=== PATIENT | male | born 1990 | race Caucasian/White ===

== ENCOUNTER 2023-06-16 21:52 | Inpatient (IN) | payer BC, OTHER ==
[2023-06-16] MEDS ORDERED: ACETAMINOPHEN INJECTION 100 ML IVPB ONE (22:43)
[2023-06-16] MEDS ORDERED: FAMOTIDINE 20 MG/50 ML IVPB 20 MG/50 ML MG IVPB ONE (22:43)
[2023-06-16 22:48] LABS: BASO % 0.5 % (0-2.0); EOS % 1.3 % (0-4.5); HEMATOCRIT 39.8 % (35.4-49); HEMOGLOBIN 13.1 GM/dL (11.7-16.9); LYMPH % 16.4 % (8-40); MCH 27.4 pg (25.7-33.7); MCHC 32.9 g/dl (32.0-35.9); MEAN CELL VOLUME 83.3 fl (80-96); MEAN PLT VOLUME 8.3 fl (7.5-11.1); MONO % 8.8 % (3.8-10.2); PLATELET COUNT 275 10^3/uL (134-434); RBC 4.78 M/mm3 (4.00-5.60); RDW 13.9 % (11.9-15.9)
[2023-06-16] MEDS: ACETAMINOPHEN 1000 MG/100 ML BAG IVPB ONE (22:58)
[2023-06-16] MEDS: SODIUM CHLORIDE 1,000 ML IV STA (22:58)
[2023-06-16 22:59] LABS: PH,URINE 5.5 (5.0-8.0); URINE APPEARANCE CLEAR; URINE BILIRUBIN NEGATIVE (NEGATIVE); URINE COLOR YELLOW; URINE GLUCOSE (UA) NEGATIVE (NEGATIVE); URINE KETONE NEGATIVE (NEGATIVE); URINE LEUK ESTERASE NEGATIVE (NEGATIVE); URINE NITRITE NEGATIVE (NEGATIVE); URINE PROTEIN NEGATIVE (NEGATIVE); URINE UROBILINOGEN 0.2 mg/dL (0.2-1.0)
[2023-06-16 23:06] LABS: POTASSIUM 3.6 mmol/L (3.5-5.1)
[2023-06-16 23:09] LABS: CALCIUM 9.3 mg/dL (8.5-10.1)
[2023-06-16 23:10] LABS: ALBUMIN 3.8 g/dl (3.4-5.0); BLOOD UREA NITROGEN 18.8 mg/dL (7-18)
[2023-06-16 23:12] LABS: CREATININE 1.1 mg/dL (0.55-1.3)
[2023-06-16 23:13] LABS: BILIRUBIN,TOTAL 0.4 mg/dL (0.2-1); TOT PROT 7.4 g/dl (6.4-8.2)
[2023-06-16] MEDS: FAMOTIDINE 20 MG/50 ML IVPB 20 MG/50 ML MG IVPB ONE (23:26)
[2023-06-16 23:28] LABS: INR 1.17 (0.83-1.09); PROTHROMBIN TIME (PATIENT) 13.6 SEC (9.7-13.0)
[2023-06-16 23:31] LABS: ACTIVATED PTT 33.3 SECONDS (25.2-36.5)
[2023-06-17] MEDS ORDERED: CEFTRIAXONE 1 GM/50 ML BAG ONE (01:46)
[2023-06-17] MEDS: CEFTRIAXONE 1,000 MG in DEXTROSE 5%-WATER - 50 ML IVPB ONE (01:52)
[2023-06-17] MEDS ORDERED: ACETAMINOPHEN 1000 MG/100 ML BAG IVPB PRN (02:51)
[2023-06-17] MEDS: SODIUM CHLORIDE 1,000 ML IV SCH (03:30)
[2023-06-17 06:26] LABS: HEMATOCRIT 37.3 % (35.4-49); HEMOGLOBIN 12.1 GM/dL (11.7-16.9); MCH 27.4 pg (25.7-33.7); MCHC 32.5 g/dl (32.0-35.9); MEAN CELL VOLUME 84.3 fl (80-96); MEAN PLT VOLUME 8.6 fl (7.5-11.1); PLATELET COUNT 241 10^3/uL (134-434); RBC 4.43 M/mm3 (4.00-5.60); RDW 13.6 % (11.9-15.9); WHITE BLOOD COUNT 12.3 K/mm3 (4.0-10.0)
[2023-06-17 06:46] LABS: POTASSIUM 4.2 mmol/L (3.5-5.1)
[2023-06-17 06:51] LABS: BLOOD UREA NITROGEN 18.8 mg/dL (7-18); CALCIUM 8.4 mg/dL (8.5-10.1)
[2023-06-17 06:52] LABS: ALBUMIN 3.5 g/dl (3.4-5.0)
[2023-06-17 06:54] LABS: CREATININE 0.9 mg/dL (0.55-1.3); PHOSPHOROUS 4.4 mg/dL (2.5-4.9)
[2023-06-17 06:56] LABS: BILIRUBIN,TOTAL 0.4 mg/dL (0.2-1); TOT PROT 6.5 g/dl (6.4-8.2)
[2023-06-17] MEDS ORDERED: AMPICILLIN NA/SULBACTAM NA 1.5 GM VIAL ONE (08:11)
[2023-06-17] MEDS: AMPICILLIN NA/SULBACTAM NA 1.5 GM in SODIUM CHLORIDE 100 ML IVPB SCH ×2 (08:26→14:36)
[2023-06-17] MEDS ORDERED: DEXAMETHASONE SOD PHOSPHATE 4 MG/1 ML VIAL ONE (09:10)
[2023-06-17] MEDS ORDERED: ROCURONIUM BROMIDE 50 MG/5 ML SYRINGE ONE (09:10)
[2023-06-17] MEDS ORDERED: SUCCINYLCHOLINE CHLORIDE 200 MG/10 ML SYRINGE ONE (09:10)
[2023-06-17] MEDS ORDERED: LIDOCAINE HCL/PF 2% SDV 5ML VIAL ONE (09:10)
[2023-06-17] MEDS ORDERED: PROPOFOL 20 ML ONE (09:10)
[2023-06-17] MEDS ORDERED: ONDANSETRON 4 MG/2 ML VIAL ONE (09:10)
[2023-06-17] MEDS ORDERED: MIDAZOLAM HCL 2 MG/2 ML SINGLE DOSE VIAL ONE (09:10)
[2023-06-17] MEDS ORDERED: BUPIVACAINE HCL/PF 0.5% (5MG/ML) 10 ML VIAL ONE (09:21)
[2023-06-17] MEDS: BUPIVACAINE HCL/PF 0.5% (5 MG/ML) 30 ML VIAL IJ ONE (10:37)
[2023-06-17] MEDS ORDERED: ACETAMINOPHEN INJECTION 100 ML IVPB ONE (10:45)
[2023-06-17] MEDS ORDERED: NEOSTIGMINE METHYLSULFATE 0.5 MG/1 ML - 10 ML MDV ONE (11:04)
[2023-06-17] MEDS ORDERED: GLYCOPYRROLATE 0.2 MG/1 ML VIAL ONE (11:05)
[2023-06-17] MEDS ORDERED: oxyCODONE HCL 5 MG TABLET PO PRN (11:26)
[2023-06-17] MEDS ORDERED: ONDANSETRON 4 MG/2 ML VIAL IVPUSH PRN (11:28)
[2023-06-17] MEDS: LACTATED RINGERS SOLUTION 1,000 ML/1,000 ML INFUS.BAG IV SCH (12:30)
[2023-06-17 14:33] VITALS: BMI 27.1
[2023-06-17] MEDS: ACETAMINOPHEN 325 MG TABLET (FP) PO PRN (19:38)
[2023-06-18 07:01] VITALS: RESP 18
[2023-06-18 09:49] VITALS: BP 142/81; PULSE 65; TEMP 98.5
[2023-06-18 10:03] LABS: BASO % 0.4 % (0-2.0); EOS % 0.5 % (0-4.5); HEMATOCRIT 39.4 % (35.4-49); HEMOGLOBIN 12.9 GM/dL (11.7-16.9); LYMPH % 25.1 % (8-40); MCH 27.5 pg (25.7-33.7); MCHC 32.7 g/dl (32.0-35.9); MEAN CELL VOLUME 84.1 fl (80-96); MEAN PLT VOLUME 8.5 fl (7.5-11.1); MONO % 7.9 % (3.8-10.2); NEUT % 66.1 % (42.8-82.8); PLATELET COUNT 264 10^3/uL (134-434); RBC 4.68 M/mm3 (4.00-5.60); RDW 13.6 % (11.9-15.9); WHITE BLOOD COUNT 11.9 K/mm3 (4.0-10.0)
[2023-06-18] MEDS: LACTATED RINGERS SOLUTION 1,000 ML IV SCH (10:11)
[2023-06-18 10:35] LABS: BLOOD UREA NITROGEN 11.2 mg/dL (7-18); CALCIUM 9.2 mg/dL (8.5-10.1)
[2023-06-18 10:37] LABS: ALBUMIN 3.5 g/dl (3.4-5.0)
[2023-06-18 10:41] LABS: BILIRUBIN,TOTAL 0.6 mg/dL (0.2-1); CREATININE 0.8 mg/dL (0.55-1.3); TOT PROT 6.9 g/dl (6.4-8.2)
== END 2023-06-18 13:44 | disposition home or self-care (01) | DRG 225 ==
LOC: JER 21:52 → JERBED 06-17 01:43 → J5S 06-17 09:14
PROVIDERS: ADMIT Internal Medicine
PROC: 0DTJ4ZZ Resection of Appendix, Percutaneous Endoscopic Approach (ICD-10-PCS; principal; 2023-06-17 09:30)
DX: K36 Other appendicitis (principal); N28.1 Cyst of kidney, acquired
CPT/HCPCS: 36415; 74177-TC; 80053; 81003; 83605; 83690; 83735; 84100; 85025; 85027; 85610; 85730; 86850; 86900; 86901; 87086; 88304-TC; 94760; 99285-25; J0131; Q9967